=== PATIENT | male | born 1955 | race Hispanic/Latino ===

== ENCOUNTER 2017-09-08 09:36 | Inpatient (IN) | payer OTHER ==
[~2017-09-08] VITALS: Ht 165.1 cm; Wt 97.5 kg
[2017-09-08 10:01] LABS: BASOPHILS % (AUTO) 0.7 % (0.0-5.0); EOSINOPHILS % (AUTO) 0.8 % (0.0-8.0); HEMATOCRIT 44.3 % (42-54); LYMPHOCYTES % (AUTO) 9.1 % (21.0-51.0); MEAN CORPUSCULAR HEMOGLOBIN 30.6 pg (27.0-33.0); MEAN CORPUSCULAR HGB CONC 34.9 g/dL (32.0-36.0); MEAN CORPUSCULAR VOLUME 87.8 fL (79-99); MONOCYTES % (AUTO) 5.6 % (3.0-13.0); NEUTROPHILS % (AUTO) 83.8 % (40.0-77.0); PLATELET COUNT (AUTO) 291 K/uL (130-400); RED BLOOD CELL COUNT(AUTO) 5.05 MIL/uL (4.50-6.20); RED CELL DISTRIBUTION WIDTH 13.1 % (11.0-15.5); WHITE BLOOD COUNT (AUTO) 19.2 K/uL (4.8-10.8)
[2017-09-08] MEDS ORDERED: CLINDAMYCIN 600 MG/D5% WATER 50 ML IV ONE (10:01)
[2017-09-08] MEDS ORDERED: KETOROLAC TROMETHAMINE 15MG/ML ONE (10:02)
[2017-09-08 10:09] LABS: POTASSIUM 4.2 mmol/L (3.5-5.1)
[2017-09-08 10:10] LABS: CREATININE 1.2 mg/dL (0.5-1.5)
[2017-09-08 10:14] LABS: ALBUMIN 3.3 g/dL (3.5-5.0); BILIRUBIN,TOTAL 0.9 mg/dL (0.2-1.0); TOTAL PROTEIN, SERUM 7.9 g/dL (6.0-8.3)
[2017-09-08] MEDS ORDERED: SODIUM CHLORIDE 0.9% 1000ML 1,000 ML IV ONE ×2 (10:20→12:33)
[2017-09-08] MEDS ORDERED: MORPHINE SULFATE 4 MG/1ML SYG ONE (10:41)
[2017-09-08] MEDS ORDERED: LIDOCAINE HCL 1% 20 ML VIAL ONE (11:08)
[2017-09-08] MEDS ORDERED: MEROPENEM 1 GM VIAL ONE (12:33)
[2017-09-08] MEDS ORDERED: INSULIN HUMULIN R 100 UNIT/ML 3ML ONE (12:35)
[2017-09-08] MEDS ORDERED: IOPAMIDOL-370 75 ML VIAL IV ONE (12:45)
[2017-09-08] MEDS: LEVOFLOXACIN 500 MG/D5W 100 ML 100 ML IV SCH (15:00)
[2017-09-08] MEDS: SODIUM CHLORIDE 0.9% 1000ML 1,000 ML IV SCH (15:00)
[2017-09-08] MEDS ORDERED: LEVOFLOXACIN 500 MG/D5W 100 ML 100 ML ONE (15:30)
[2017-09-08] MEDS: INSULIN R PO SS1 SQ SCH ×2 (16:30→23:00)
[2017-09-08] MEDS: HYDROCODONE/ACETAMINOPHEN 5/325 MG TAB PO SCH ×2 (17:00→22:53)
[2017-09-08 17:48] VITALS: BP 139/78
[2017-09-08 19:50] VITALS: BP 142/81
[2017-09-08] MEDS: MEROPENEM 1 GM VIAL IVP SCH (22:51)
[2017-09-09] VITALS (7 sets, daily range): BP systolic 121–135; BP diastolic 64–78
[2017-09-09 03:31] LABS: HEMATOCRIT 38.4 % (42-54); MEAN CORPUSCULAR HEMOGLOBIN 30.5 pg (27.0-33.0); MEAN CORPUSCULAR HGB CONC 34.7 g/dL (32.0-36.0); PLATELET COUNT (AUTO) 264 K/uL (130-400); RED BLOOD CELL COUNT(AUTO) 4.37 MIL/uL (4.50-6.20); WHITE BLOOD COUNT (AUTO) 16.9 K/uL (4.8-10.8)
[2017-09-09 03:41] LABS: CREATININE 0.9 mg/dL (0.5-1.5); MAGNESIUM 1.7 mg/dL (1.80-2.40); POTASSIUM 3.6 mmol/L (3.5-5.1)
[2017-09-09] MEDS: MEROPENEM 1 GM VIAL IVP SCH ×3 (03:46→22:18)
[2017-09-09] MEDS: INSULIN R PO SS1 SQ SCH ×4 (07:30→22:25)
[2017-09-09] MEDS: SODIUM CHLORIDE 0.9% 1000ML 1,000 ML IV SCH ×2 (08:43→11:00)
[2017-09-09] MEDS: HYDROCODONE/ACETAMINOPHEN 5/325 MG TAB PO SCH ×4 (09:00→22:20)
[2017-09-09] MEDS: LEVOFLOXACIN 500 MG/D5W 100 ML 100 ML IV SCH (14:52)
[2017-09-10 03:20] VITALS: BP 130/76
[2017-09-10] MEDS: MEROPENEM 1 GM VIAL IVP SCH ×2 (03:53→11:56)
[2017-09-10 04:08] LABS: HEMATOCRIT 38.8 % (42-54); MEAN CORPUSCULAR HEMOGLOBIN 31.1 pg (27.0-33.0); MEAN CORPUSCULAR HGB CONC 35.1 g/dL (32.0-36.0); MEAN CORPUSCULAR VOLUME 88.5 fL (79-99); PLATELET COUNT (AUTO) 306 K/uL (130-400); RED BLOOD CELL COUNT(AUTO) 4.38 MIL/uL (4.50-6.20); RED CELL DISTRIBUTION WIDTH 13.2 % (11.0-15.5)
[2017-09-10 04:17] LABS: CREATININE 0.8 mg/dL (0.5-1.5); MAGNESIUM 1.8 mg/dL (1.80-2.40)
[2017-09-10] MEDS ORDERED: BACL10TA PO (06:02)
[2017-09-10] MEDS ORDERED: LISI1TAB11 PO (06:02)
[2017-09-10] MEDS: INSULIN R PO SS1 SQ SCH ×2 (06:25→11:38)
[2017-09-10 07:00] VITALS: BP_SYST 100; BP_SYST 139; BP_DIAS 62; BP_DIAS 75
[2017-09-10] MEDS: SODIUM CHLORIDE 0.9% 1000ML 1,000 ML IV SCH (08:49)
[2017-09-10] MEDS: HYDROCODONE/ACETAMINOPHEN 5/325 MG TAB PO SCH ×2 (08:56→12:50)
[2017-09-10 11:00] VITALS: BP 138/74
[2017-09-10] MEDS: LEVOFLOXACIN 500 MG/D5W 100 ML 100 ML IV SCH (15:12)
== END 2017-09-10 17:57 | disposition home or self-care (01) | DRG 603 ==
LOC: EDH 09:36 → EDHIP 11:10 → 3CH 17:22
PROVIDERS: ADMIT Family Medicine; ATTEND Family Medicine
PROC: 0W923ZZ Drainage of Face, Percutaneous Approach (ICD-10-PCS; principal; 2017-09-08)
DX: L03.211 Cellulitis of face (principal); E11.65 Type 2 diabetes mellitus with hyperglycemia; L02.01 Cutaneous abscess of face; I10 Essential (primary) hypertension; G89.29 Other chronic pain; M54.5 Low back pain; D72.829 Elevated white blood cell count, unspecified
CPT/HCPCS: 36415; 70488; 80048; 80053; 82948; 83735; 85025; 85027; 87040; 87070; 87076; A4218; J1815; J1885; J1956; J2185; J2270; J3490; J7030; Q9967